=== PATIENT | female | born 1960 | race Caucasian/White ===

== ENCOUNTER 2017-06-16 12:53 | Emergency (ER) | payer MEDICAID ==
[~2017-06-16] VITALS: Ht 160 cm; Wt 62.5 kg
[2017-06-16] MEDS ORDERED: ASPI-556 PO (13:15)
[2017-06-16] MEDS ORDERED: ROFL500T PO (13:19)
[2017-06-16] MEDS ORDERED: CARV3 PO (13:19)
[2017-06-16] MEDS ORDERED: METO25XL PO (13:19)
[2017-06-16] MEDS ORDERED: ACET-66 PO (13:19)
[2017-06-16] MEDS ORDERED: ALBU8.5H8 IH (13:19)
[2017-06-16] MEDS ORDERED: ADV100 IH (13:19)
[2017-06-16] MEDS ORDERED: IPRA4AER IH (13:19)
[2017-06-16] MEDS ORDERED: LISI-661 PO (13:19)
[2017-06-16] MEDS ORDERED: MONT10TA21 PO (13:19)
[2017-06-16] MEDS ORDERED: ATOR40TA28 PO (13:19)
[2017-06-16] MEDS ORDERED: NAPR-58 PO (13:19)
[2017-06-16] MEDS ORDERED: IPRAHFA IH (13:19)
[2017-06-16] MEDS ORDERED: COLCHICINE 0.6 MG TABLET PO ONE (15:15)
[2017-06-16] MEDS ORDERED: ONDANSETRON HCL 4 MG TABLET PO ONE (17:15)
[2017-06-16] MEDS ORDERED: OxyCODONE HCL/ACETAMINOPHEN 5-325 MG TABLET PO ONE (17:15)
[2017-06-16 17:30] VITALS: BP 110/76
== END 2017-06-16 17:40 | disposition home or self-care (01) ==
LOC: EMS 12:56
DX: M25.562 Pain in left knee (principal); I11.0 Hypertensive heart disease with heart failure; I50.9 Heart failure, unspecified; J44.9 Chronic obstructive pulmonary disease, unspecified; F17.210 Nicotine dependence, cigarettes, uncomplicated; Z79.82 Long term (current) use of aspirin
CPT/HCPCS: 73562; 99284; Q0162